=== PATIENT | female | born 1995 | race African-American/Black ===

== ENCOUNTER 2016-05-25 10:46 | Emergency (ER) | payer OTHER ==
[~2016-05-25] VITALS: Ht 170.2 cm; Wt 100.0 kg
[2016-05-25 14:37] VITALS: BP 126/70
== END 2016-05-25 14:40 | disposition home or self-care (01) ==
LOC: EMS 10:48
DX: S83.91XA Sprain of unspecified site of right knee, initial encounter (principal); W50.2XXA Accidental twist by another person, initial encounter; Y93.89 Activity, other specified; Y92.89 Other specified places as the place of occurrence of the external cause; Y99.8 Other external cause status
CPT/HCPCS: 29505; 99284